=== PATIENT | female | born 1980 | race Caucasian/White ===

== ENCOUNTER 2022-01-22 15:42 | Emergency (ER) | payer OTHER, SELFPAY ==
--- NOTE | ~2022-01-22 | XR_ITS ---
EXAM: XR foot LT min 3V DATE: 01/22/2022 16:12 HISTORY: SLIPPED ON FLOOR 01/21/22. ANT/LAT. PAIN SINCE. . COMPARISON: None available. FINDINGS: Normal mineralization. No fracture or dislocation. No lytic or blastic lesion. Joint space s are maintained. Prominent dorsally oriented tarsometatarsal osteophyte. Mild hallux valgus. Ron s enthesopathy. No erosion or periosteal change. Soft tissues within normal limits. IMPRESSION: No acute osseous finding in the left foot. Reviewed, dictated and finalized at location K.
[2022-01-22 15:54] VITALS: BP 126/77; PULSE 86; RESP 20; TEMP 36.6; O2SAT 100
--- NOTE | 2022-01-22 16:03 | ED.LOWEXIN ---
HPI - Extremity Injury (Lower) General Chief Complaint: Extremity Injury, Lower Stated Complaint: Left foot injury Time Seen by Provider: 01/22/22 16:40 Source: patient and RN notes reviewed Mode of arrival: ambulatory Limitations: no limitations History of Present Illness HPI Narrative: 41-year-old female presents with concern for left foot pain. She reports yesterday she slipped causing her foot to possibly roll, causing pain to the dorsal lateral foot. She reports mild edema. She denies open skin, bruising. She denies any other injury. Reports pain is exacerbated when she moves her first toe. MD complaint: foot injury Related Data Home Medications Medication Instructions Recorded Confirmed clonazepam 0.5 mg tablet 0.5 mg PO BID 01/22/22 01/22/22 loratadine 10 mg tablet 10 mg PO DAILY 01/22/22 01/22/22 rizatriptan 10 mg disintegrating 10 mg PO DAILY PRN Migraine 01/22/22 01/22/22 tablet Headache terbinafine HCl 250 mg tablet 250 mg PO DAILY 01/22/22 01/22/22 Allergies Allergy/AdvReac Type Severity Reaction Status Date / Time theophylline Allergy Unknown Verified 01/22/22 16:11 [From Elixophyllin] Sulfa (Sulfonamide AdvReac Other Verified 01/22/22 16:10 Antibiotics) Review of Systems Review of Systems: CONSTITUTIONAL: Denies malaise, chills, sweats, or fever. SKIN: Denies rash or itching, open skin, laceration, abrasion, redness, warmth MUSCULOSKELETAL: Reports left foot pain and swelling NEUROLOGIC: Denies numbness, weakness All systems reviewed & are unremarkable except as noted in HPI and below PMFSH Comments At time of signature, agree with nursing past medical, surgical, social and family history. There is no relevant family history pertinent to the presenting complaint Exam Narrative: GENERAL: Well-appearing, well-nourished, and in no acute distress. HEAD: Normocephalic, atraumatic. EYES: PERRLA, conjunctivae clear NECK: Supple. CHEST: Speaks in full sentences. No respiratory distress. HEART: Regular rate and rhythm. Normal and equal peripheral pulses. EXTREMITIES: Left foot and digits have normal strength and sensation, normal range of motion. Mild lateral edema, no ecchymosis. 5/5 strength with ankle and digit flexion and extension. Normal sensation with sensitivity to light touch and pain. Lateral tenderness. No open wounds, no skin tenting, no devitalized tissue or atrophy, no trophic changes, no obvious deformity, alignment normal, nearby joints and structures intact. Distal pulses palpable and equal bilaterally, skin warm, dry, pink. Capillary refill less than 3 seconds. SKIN: Warm, dry, no rash. NEURO: Alert and oriented x3. PSYCH: Normal mood and affect Course Course Emergency Course: Patient is aware of diagnosis, understands and agrees to treatment plan. Anticipatory guidance given. Patient agrees to follow-up as directed and is aware of reasons to seek care at the emergency department. Portions of this record may have been created with voice recognition software Level of Care: Express Care Visit Vital Signs Vital signs: Vital Signs Temperature 97.8 F 01/22/22 15:54 Pulse Rate 86 01/22/22 15:54 Respiratory Rate 20 01/22/22 15:54 Blood Pressure 126/77 01/22/22 15:54 Pulse Oximetry 100 01/22/22 15:54 Oxygen Delivery Room Air 01/22/22 15:54 Temperature 97.8 F 01/22/22 15:54 Pulse Rate 86 01/22/22 15:54 Respiratory Rate 20 01/22/22 15:54 Blood Pressure 126/77 01/22/22 15:54 Pulse Oximetry 100 01/22/22 15:54 Oxygen Delivery Room Air 01/22/22 15:54 Reviewed. MDM - Extremity Injury (Lower) MDM Narrative Medical decision making narrative: Patients injury and pain is consistent with musculoskeletal etiology. No signs of neurological or vascular compromise on exam. Compartments and tissues are soft without signs of compartment syndrome. Pain is felt appropriate for further evaluation on an outpatient basis. Imaging Data My impr
== END 2022-01-22 16:40 | disposition home or self-care (01) ==
PROVIDERS: Emergency Provider Nurse Practitioner; PCP Nurse Practitioner Family
DX: S93.602A Unspecified sprain of left foot, initial encounter (principal); W18.40XA Slipping, tripping and stumbling without falling, unspecified, initial encounter; K21.9 Gastro-esophageal reflux disease without esophagitis
CPT/HCPCS: 73630; 99213; G0463